=== PATIENT | female | born 1990 | race Caucasian/White ===

== ENCOUNTER 2021-07-31 08:25 | Emergency (ER) | payer OTHER ==
[~2021-07-31] VITALS: Ht 162.6 cm; Wt 52.2 kg
--- NOTE | 2021-07-31 08:50 | NUR ---
PT CAME TO ER C/O POSTERIOR HEAD TIGHTNESS/THROBBING AND LEFT ARM TINGLING X 2 MONTHS. REPORT BLURRY VISION X [address] SCAN AND MRI IN [place]. AAOX4, AMBULATORY, NO FACIAL DROOP, NO DRIFT OF UPPER OR LOWER EXTREMITIES. ON MONITOR.
--- NOTE | 2021-07-31 09:23 | NUR ---
URINE COLLECTED AND SENT TO LAB
[2021-07-31] MEDS ORDERED: IOHEXOL-350 100 ML VIAL IV ONE (09:37)
[2021-07-31] MEDS ORDERED: IV NS 0.9% 250 ML IV ONE (09:38)
[2021-07-31] MEDS ORDERED: CT SWABBABLE VALVE TRANS SET 1 EA INFUS.SET MC ONE (09:38)
--- NOTE | 2021-07-31 09:48 | NUR ---
PT TAKEN TO CT
--- NOTE | 2021-07-31 10:07 | NUR ---
BACK FROM CT
[2021-07-31] MEDS ORDERED: KETOROLAC TROMETHAMINE INJ 30 MG/ML VIAL IV ONE (12:00)
[2021-07-31] MEDS ORDERED: IV NS 0.9% 1,000 ML BAG IV ONE (12:00)
[2021-07-31] MEDS ORDERED: METOCLOPRAMIDE HCL 10 MG/2 ML VIAL IV ONE (12:00)
[2021-07-31] MEDS ORDERED: diphenhydrAMINE HCL 50 MG/ML VIAL IV ONE (12:00)
[2021-07-31] MEDS ORDERED: SUMATRIPTAN SUCCINATE 6 MG/0.5 ML VIAL SQ ONE ×2 (12:00→12:19)
[2021-07-31] MEDS ORDERED: diphenhydrAMINE HCL 50 MG/ML VIAL ONE (12:18)
[2021-07-31] MEDS ORDERED: KETOROLAC TROMETHAMINE INJ 30 MG/ML VIAL ONE (12:19)
[2021-07-31] MEDS ORDERED: METOCLOPRAMIDE HCL 10 MG/2 ML VIAL ONE (12:19)
[2021-07-31 13:55] VITALS: BP 112/68
--- NOTE | 2021-07-31 14:00 | NUR ---
IV removed. Catheter intact and site benign. Pressure and 4x4 applied to site. No bleeding noted.
== END 2021-07-31 14:21 | disposition home or self-care (01) ==
LOC: ER 08:34
DX: R51.9 Headache, unspecified (principal); R20.0 Anesthesia of skin
CPT/HCPCS: 70450; 70496; 70498; 84703; 96361; 96374; 96375; 99284; J1200; J1885; J2765; J3030; J7030; J7050; Q9967

== ENCOUNTER 2023-04-21 05:16 | Emergency (ER) | payer OTHER | END 2023-04-21 06:23 | disposition left against medical advice (07) | LOC: ER 05:16 | DX: Z53.21 Procedure and treatment not carried out due to patient leaving prior to being seen by health care provider (principal) ==